=== PATIENT | female | born 1955 | race Caucasian/White ===

== ENCOUNTER 2017-01-22 23:09 | Inpatient (IN) | payer MEDICARE, MEDICAID ==
[~2017-01-22] VITALS: Ht 165.1 cm; Wt 86.6 kg
[2017-01-23] MEDS ORDERED: ASPIRIN 81MG TABLET PO ONE (04:30)
[2017-01-23 04:57] LABS: BASOPHILS % 1.1 % (0.0-2.0); EOSINOPHILS % 2.8 % (0.0-5.0); HEMATOCRIT. 30.8 % (36.0-48.0); HEMOGLOBIN. 10.7 g/dL (12.0-16.0); LYMPHOCYTES % 34.8 % (20.0-50.0); MEAN CORPUSCULAR HEMOGLOBIN 28.8 pg (28.0-32.0); MEAN CORPUSCULAR VOLUME 83.1 fL (81.0-99.0); MONOCYTES % 6.6 % (2.0-8.0); NEUTROPHILS % 54.7 % (40.0-76.0); PLATELET 265 x1000/uL (130-400); RED BLOOD CELL COUNT 3.71 mill/uL (4.2-5.4); RED CELL DISTRIBUTION WIDTH 15.2 % (11.6-14.6)
[2017-01-23 05:02] LABS: D-DIMER 0.59 mg/L FEU (<0.50); INR 1.1; PROTHROMBIN TIME 11.2 sec (9.4-11.6)
[2017-01-23 05:09] LABS: CARBON DIOXIDE 28 mEq/L (21-32); CHLORIDE 107 mEq/L (98-107); ETHANOL BLOOD < 10 mg/dL; TROPONIN I < 0.02 ng/mL (0.00-0.04)
[2017-01-23 10:16] LABS: T4 FREE 0.83 ng/dL (0.76-1.46)
[2017-01-23 12:00] VITALS: BP 105/61
[2017-01-23] MEDS ORDERED: ACETAMINOPHEN 325MG TABLET PO PRN (12:30)
[2017-01-23] MEDS ORDERED: LORAZEPAM 0.5MG TABLET PO PRN (12:30)
[2017-01-23] MEDS ORDERED: ONDANSETRON HCL 4MG/2ML VIAL IV PRN (12:30)
[2017-01-23] MEDS ORDERED: ACETAMINOPHEN 650MG SUPP PR PRN (12:30)
[2017-01-23] MEDS ORDERED: GUAIFENESIN 200MG/10ML SUGAR FREE UDC PO PRN (12:30)
[2017-01-23] MEDS ORDERED: DOCUSATE SODIUM 100MG CAPSULE PO PRN (12:30)
[2017-01-23] MEDS ORDERED: NA PHOS,M-B/NA PHOS,DI-BA ENEMA 118ML PR PRN (12:30)
[2017-01-23] MEDS ORDERED: HYDROCODONE/ACETAMINOPHEN 5/325MG TABLET PO PRN (12:30)
[2017-01-23] MEDS ORDERED: IPRATROPIUM/ALBUTEROL 0.5-3(2.5)MG/3ML NEB INH PRN (12:30)
[2017-01-23] MEDS ORDERED: ACETAMINOPHEN 650MG/20.3ML UDC GT PRN (12:30)
[2017-01-23] MEDS ORDERED: CLONIDINE 0.1MG TABLET PO PRN (12:30)
[2017-01-23] MEDS ORDERED: DIPHENHYDRAMINE 50MG/ML VIAL IV PRN (12:30)
[2017-01-23] MEDS ORDERED: MAGNESIUM/ALUMINUM HYDROXIDE/SIMETHICONE 30ML UDC PO PRN (12:30)
[2017-01-23] MEDS: ENOXAPARIN 40MG/0.4ML SYR SUBCUT SCH (12:30)
[2017-01-23] MEDS ORDERED: MORPHINE SULFATE 4 MG/ML CPJ (NOT FOR IM USE) IV PRN (12:45)
[2017-01-23] MEDS ORDERED: ALPR2TAB2 PO (13:02)
[2017-01-23] MEDS ORDERED: LOSA100T14 PO (13:02)
[2017-01-23] MEDS ORDERED: HYDR12.54 PO (13:02)
[2017-01-23] MEDS ORDERED: FURO-151 PO (13:02)
[2017-01-23] MEDS ORDERED: CINA30 PO (13:02)
[2017-01-23] MEDS ORDERED: POTA8CAP10 PO (13:03)
[2017-01-23] MEDS ORDERED: LORA10CA PO (13:07)
[2017-01-23] MEDS ORDERED: CYAN10009 PO (13:07)
[2017-01-23] MEDS ORDERED: CHOL500010 PO (13:07)
[2017-01-23] MEDS ORDERED: IBUP-2030 PO (13:07)
[2017-01-23 14:18] VITALS: BP 105/61
[2017-01-23 14:24] VITALS: BP 105/61
[2017-01-23] MEDS: SODIUM CHLORIDE 0.9% INJ 3ML FLUSH IVF SCH ×2 (14:30→23:27)
[2017-01-23] MEDS ORDERED: ALBUTEROL (0.083%) 2.5MG/3ML NEB HHN PRN (16:30)
[2017-01-23] MEDS ORDERED: POTASSIUM CHLORIDE 20MEQ TABLET SR PO NR (16:30)
[2017-01-23] MEDS: GUAIFENESIN/DM 600MG/30MG ER TAB 12HR PO SCH ×3 (16:50→23:39)
[2017-01-23] MEDS: SODIUM CHLORIDE 0.9% 1,000 ML IV SCH (16:51)
[2017-01-23 17:09] VITALS: BP 105/54
[2017-01-23 17:36] LABS: CREATINE KINASE 225 IU/L (26-192); TROPONIN I < 0.02 ng/mL (0.00-0.04)
[2017-01-23 19:36] VITALS: BP 112/60
[2017-01-23] MEDS ORDERED: REGADENOSON 0.4 MG/5 ML IV NR (20:00)
[2017-01-23 21:05] LABS: T4 FREE 0.91 ng/dL (0.76-1.46)
[2017-01-23] MEDS: ALBUTEROL (0.083%) 2.5MG/3ML NEB HHN SCH (22:11)
[2017-01-23] MEDS: ALPRAZOLAM 0.5 MG TABLET PO PRN (23:16)
[2017-01-24 00:04] VITALS: BP 120/65
[2017-01-24] MEDS: ALBUTEROL (0.083%) 2.5MG/3ML NEB HHN SCH ×3 (03:59→14:35)
[2017-01-24 04:24] VITALS: BP 145/70
[2017-01-24] MEDS: SODIUM CHLORIDE 0.9% INJ 3ML FLUSH IVF SCH ×2 (06:00→14:00)
[2017-01-24] MEDS: GUAIFENESIN/DM 600MG/30MG ER TAB 12HR PO SCH ×2 (06:00→14:00)
[2017-01-24 07:58] LABS: BASOPHILS % 0.6 % (0.0-2.0); EOSINOPHILS % 1.1 % (0.0-5.0); HEMATOCRIT. 31.1 % (36.0-48.0); HEMOGLOBIN. 10.5 g/dL (12.0-16.0); LYMPHOCYTES % 20.9 % (20.0-50.0); MEAN CORPUSCULAR HEMOGLOBIN 28.7 pg (28.0-32.0); MEAN PLATELET VOLUME 8.1 fl (7.4-10.4); MONOCYTES % 4.7 % (2.0-8.0); NEUTROPHILS % 72.7 % (40.0-76.0); PLATELET 244 x1000/uL (130-400); RED BLOOD CELL COUNT 3.66 mill/uL (4.2-5.4); RED CELL DISTRIBUTION WIDTH 15.2 % (11.6-14.6)
[2017-01-24 08:20] VITALS: BP 105/61
[2017-01-24 08:51] LABS: CARBON DIOXIDE 26 mEq/L (21-32); CHLORIDE 109 mEq/L (98-107); CREATINE KINASE 222 IU/L (26-192); TROPONIN I < 0.02 ng/mL (0.00-0.04)
[2017-01-24 08:55] LABS: CREATINE KINASE MB FRACTION 0.6 ng/mL (0.5-3.6)
[2017-01-24] MEDS: ENOXAPARIN 40MG/0.4ML SYR SUBCUT SCH (09:00)
[2017-01-24] MEDS: ALPRAZOLAM 0.5 MG TABLET PO PRN (09:20)
[2017-01-24 12:32] VITALS: BP 100/61
[2017-01-24] MEDS: SODIUM CHLORIDE 0.9% 1,000 ML IV SCH (12:45)
[2017-01-24 15:24] VITALS: BP 120/72
== END 2017-01-24 17:10 | disposition home or self-care (01) | DRG 880 ==
LOC: ER 23:16 → 6WST 01-23 04:57 → ENRESERV 01-23 10:23
PROVIDERS: ADMIT Family Medicine; ATTEND Family Medicine
DX: F41.1 Generalized anxiety disorder (principal); K57.92 Diverticulitis of intestine, part unspecified, without perforation or abscess without bleeding; I10 Essential (primary) hypertension; E78.5 Hyperlipidemia, unspecified; E11.9 Type 2 diabetes mellitus without complications; D64.9 Anemia, unspecified; Z98.891 History of uterine scar from previous surgery; Z79.899 Other long term (current) drug therapy
CPT/HCPCS: 36415; 71010; 80053; 80061; 82550; 82553; 83036; 83735; 83880; 84439; 84443; 84484; 85025; 85379; 85610; 93005; 93306; 93970; 94640; 94664; 99285; G0482; J7030; J7611; J7620

== ENCOUNTER 2017-06-25 19:02 | Emergency (ER) | payer MEDICARE, MEDICAID ==
[~2017-06-25] VITALS: Ht 170.2 cm; Wt 73.0 kg
[~2017-06-25 19:02] MED LIST: ALPR2TAB2 PO; CHOL500010 PO; CINA30 PO; CYAN10009 PO; FURO-151 PO; HYDR12.54 PO; IBUP-2030 PO; LORA10CA PO; LOSA100T14 PO; POTA8CAP10 PO
[2017-06-26 04:52] LABS: BASOPHILS % 2.2 % (0.0-2.0); EOSINOPHILS % 6.2 % (0.0-5.0); HEMATOCRIT. 37.3 % (36.0-48.0); HEMOGLOBIN. 12.6 g/dL (12.0-16.0); LYMPHOCYTES % 49.6 % (20.0-50.0); MEAN CORPUSCULAR HEMOGLOBIN 28.2 pg (28.0-32.0); MEAN CORPUSCULAR VOLUME 83.5 fL (81.0-99.0); MONOCYTES % 8.9 % (2.0-8.0); NEUTROPHILS % 33.1 % (40.0-76.0); PLATELET 277 x1000/uL (130-400); RED BLOOD CELL COUNT 4.47 mill/uL (4.2-5.4); RED CELL DISTRIBUTION WIDTH 16.7 % (11.6-14.6)
[2017-06-26 05:10] LABS: CHLORIDE 99 mEq/L (98-107)
[2017-06-26] MEDS ORDERED: ACETAMINOPHEN 325MG TABLET PO NR (05:15)
[2017-06-26 05:25] VITALS: BP 106/64
[2017-06-26] MEDS ORDERED: POTASSIUM CHLORIDE 20MEQ/PACKET PO ONE (05:45)
== END 2017-06-26 06:44 | disposition home or self-care (01) ==
LOC: ER 19:09
DX: I10 Essential (primary) hypertension (principal); F41.0 Panic disorder [episodic paroxysmal anxiety]; R09.82 Postnasal drip
CPT/HCPCS: 36415; 71045; 80053; 81003; 83735; 85025; 93005; 99285